=== PATIENT | female | born 1945 | race Caucasian/White ===

== ENCOUNTER 2017-07-27 05:22 | Inpatient (IN) | payer OTHER ==
[2017-07-12 08:42] LABS: HEMATOCRIT 40.7 % (37.0-47.0); HEMOGLOBIN 13.6 gm/dL (12.0-15.0); MCH 30.2 pg (26.0-34.0); MCHC 33.3 g/dL (28.0-37.0); MCV 90.5 fL (80.0-100.0); RBC 4.5 mil/uL (4.20-5.00); RDW 13.6 % (10.5-14.5); WBC 7.7 thou/uL (4.0-11.0)
[2017-07-12 08:51] LABS: URINE BILIRUBIN NEGATIVE (Negative); URINE BLOOD TRACE (Negative); URINE CLARITY CLEAR; URINE COLOR YELLOW; URINE GLUCOSE-RANDOM* NEGATIVE (Negative); URINE KETONES NEGATIVE (Negative); URINE LEUKOCYTES-REFLEX NEGATIVE (Negative); URINE NITRITE-REFLEX NEGATIVE (Negative); URINE PROTEIN (DIPSTICK) NEGATIVE (Negative); URINE UROBILINOGEN 0.2 E.U./dl (0.2-1.0)
[2017-07-12 08:53] LABS: ALBUMIN 4.4 g/dL (3.4-5.0); CALCIUM 9.5 mg/dL (8.5-10.1); CREATININE 0.8 mg/dL (0.6-1.0); POTASSIUM 3.8 mmol/L (3.5-5.1)
[2017-07-12 08:55] LABS: PROTIME 10.5 Seconds (9.3-11.4)
[2017-07-27] VITALS (7 sets, daily range): BP systolic 107–158; BP diastolic 59–80
[~2017-07-27] VITALS: Ht 167.6 cm; Wt 58.5 kg
--- NOTE | ~2017-07-27 | EKG ---
[place] [address] [facility] [place] [address] ELECTROCARDIOGRAM REPORT Name: CRISTAL MILLER Room #: PRE IN ..#: [id number] Admission: Attend Phys: Keshav Marrufo MD Discharge: Date of : 41 Report #: [id number] THIS REPORT FOR: //name// [facility] Test Date: 2017-07-12 Test Time: 08:47:57 Pat Name: CRISTAL MILLER Department: Room: Gender: F Industrial Staff Nurse: vianney perez : 1945 Requested By: Keshav Marrufo Order Number: [id number] MD: Jesús Roa Measurements Intervals [place] Rate: 78 P: 40 CT: 113 QRS: 52 QRSD: 86 T: -10 QT: 395 QTc: 450 Interpretive Statements Sinus rhythm Borderline short CT interval Abnormal R-wave progression, early transition Left ventricular hypertrophy No previous ECG available for comparison Electronically Signed On 07-12-2017 10:00:06 [employer] by Jesús Roa [email or web address] <ELECTRONICALLY SIGNED> By: Jesús Roa MD, [facility] 07/12/17 1000 [id number] Jesús Roa MD, FACC /EPI
--- NOTE | ~2017-07-27 | O ---
[facility] [place] [address] OPERATIVE REPORT Name: CRISTAL MILLER Room #: 403-P [facility] IN M.R.#: [id number] Admission: 07/27/17 Attend Phys: Keshav Marrufo MD Discharge: Date of : 41 Report #: [id number] THIS REPORT FOR: //name// CC: Esther Higgins Keshav Marrufo DATE OF SERVICE: 07/27/2017 PREOPERATIVE DIAGNOSIS: Left hip osteoarthritis. POSTOPERATIVE DIAGNOSIS: Left hip osteoarthritis. PROCEDURE: Left total hip arthroplasty. SURGEON: Keshav Marrufo MD. MANAGED CARE PROVIDER: Viridiana Vang PA-C. INDICATIONS FOR MANAGED CARE PROVIDER: Throughout the case, dislocation and reduction of the hip was required. This was afforded to me by my assistant auto center manager. ANESTHESIA: General endotracheal. IMPLANTS: [employer] size 14 high offset Synergy press fit stem, size 52 R3 acetabular cup with one acetabular screw and a size 36 +0 cobalt chrome head. ESTIMATED BLOOD LOSS: 100 mL. COMPLICATIONS: None. SPECIMENS: None. CONDITION UPON LEAVING THE OPERATING ROOM: Stable. INDICATION FOR PROCEDURE: The patient is a 72-year-old female with severe left hip osteoarthritis. She has failed conservative treatment for this and after discussion with her, she elected for left total hip arthroplasty. DESCRIPTION OF PROCEDURE: Risks, benefits, alternatives, complications were discussed in detail with the patient including but not limited to risk of anesthesia, risk of damage to nerves, arteries, blood vessels, risk for infection, bleeding, risk for leg length discrepancy, instability and need for reoperation. Informed consent was obtained from the patient and the left hip was appropriately marked in the preoperative holding area. IV Ancef was given for preoperative antibiotics. She was brought to the operating room and placed in supine position on operating room table. General endotracheal anesthesia was [facility] [address] [place] [address] OPERATIVE REPORT Name: CRISTAL MILLER Room #: 403-P ADM IN M.R.#: [id number] Admission: 07/27/17 Attend Phys: Keshav Marrufo MD Discharge: Date of : 41 Report #: [id number] induced without complication. She was then placed in the right lateral decubitus position with the left hip uppermost. Left hip and lower extremity were prepped and draped in normal sterile fashion. Timeout was performed properly identifying the patient, procedure as well as the instrumentation. All in the operating room were in agreement. Standard posterior approach to the hip was made with 10 blade through the skin. Dissection was taken down to the fascia with Bovie cautery and the fascia was cleaned off with Alfonso elevator. Fresh 10 blade was used to make a fascial incision. This was taken proximally and distally with curved Mcwilliams scissors. Charnley retractor was placed. Trochanteric bursa was taken down with Bovie. Piriformis tendon was identified, tagged and taken down with Bovie cautery. Capsulotomy was made and capsule ends were tagged for later repair. Hip was dislocated and there was extensive osteoarthritic change of the femoral head with flattening of the head. Femoral neck cut was then made 1 cm proximal to the lesser trochanter based on preoperative templating. Femoral head was removed. Deep acetabular retractors were placed and the labrum was removed sharply. Pulvinar was removed with Bovie cautery. The acetabulum was then sequentially reamed up to a size 54, which there was excellent bleeding cancellous bone. A size 53 trial cup was placed, found to have a good fit. A final size 54 R3 acetabular cup was placed and seated. One acetabular screw was placed for backup fixation with the polyethylene liner for 36 head was placed. Attention was then turned at the femur. This was reamed and broached up to a size 14 at which point, size 14 broach was stable. This was trialed with a high offset neck and a 36 +0 head. Hip was reduced, taken through range of motion, found to be stable, found to have equal leg lengths. Hip was dislocated and the broach was removed. The final size 14 high offset stem was then seated and trialed again with a 36 +0 head. Hip was reduced, taken through range of motion, found to be stable, found to have equal leg lengths. Hip was dislocated again and the trial head was removed. Final size 36 +0 cobalt chrome head was then placed. Hip was reduced, taken through range of motion, found to be stable, found to have equal leg length. The hip was thoroughly irrigated with normal saline. A periarticular injection consisting of morphine, ropivacaine, epinephrine and Toradol was placed around the hip joint. A gram of vancomycin was placed deep in the hip joint. The capsule and piriformis were repaired with 0 FiberWire. Fascia was closed with 0 Vicryl, skin was closed with 2-0 Vicryl, 3-0 Monocryl, Dermabond and a LESLIE dressing was applied. The patient tolerated this procedure well and went to the recovery room under the care of Anesthesia postoperatively. <ELECTRONICALLY SIGNED> By: Keshav Marrufo MD 07/28/17 1722 [id number] Keshav Marrufo MD /nt
[~2017-07-27 05:22] MED LIST: SERTRALINE HCL50 MG PO; TYLENOL325 MG PO
[2017-07-28] VITALS: BP 96/52
[2017-07-28 04:00] VITALS: BP 107/57
[2017-07-28 05:44] LABS: HEMATOCRIT 26.8 % (37.0-47.0); HEMOGLOBIN 9.2 gm/dL (12.0-15.0); MCH 31.1 pg (26.0-34.0); MCHC 34.4 g/dL (28.0-37.0); MCV 90.4 fL (80.0-100.0); RBC 2.96 mil/uL (4.20-5.00); RDW 13.4 % (10.5-14.5); WBC 7.4 thou/uL (4.0-11.0)
[2017-07-28 08:00] VITALS: BP 93/51
[2017-07-28 16:00] VITALS: BP 128/57
[2017-07-28] MEDS ORDERED: HYDROCODON-ACE1 EAC7 PO (17:23)
[2017-07-28] MEDS ORDERED: TRI-BUFFERED A325 M1 PO (17:23)
[2017-07-28] MEDS ORDERED: NEURONTIN 300300 M1 PO (17:23)
[2017-07-28 19:33] VITALS: BP 93/42
[2017-07-29 02:58] VITALS: BP 105/44
[2017-07-29 03:43] LABS: HEMOGLOBIN 8.6 gm/dL (12.0-15.0); MCH 31.3 pg (26.0-34.0); MCHC 34.6 g/dL (28.0-37.0); MCV 90.4 fL (80.0-100.0); RBC 2.76 mil/uL (4.20-5.00); RDW 13.5 % (10.5-14.5)
[2017-07-29 08:30] VITALS: BP 131/43
[2017-07-29 09:51] VITALS: BP 131/43
== END 2017-07-29 10:45 | disposition home or self-care (01) | DRG 470 ==
LOC: 4N 05:22 → TBA 05:22 → PRE 05:32 → 4N 10:33 → PRE 15:41 → 4N 07-29 10:45
PROVIDERS: Orthopaedic Surgery
PROC: 0SRB0JZ Replacement of Left Hip Joint with Synthetic Substitute, Open Approach (ICD-10-PCS; principal; 2017-07-27)
DX: M16.12 Unilateral primary osteoarthritis, left hip (principal); F32.9 Major depressive disorder, single episode, unspecified; M16.11 Unilateral primary osteoarthritis, right hip; M70.61 Trochanteric bursitis, right hip; F41.9 Anxiety disorder, unspecified; Z85.3 Personal history of malignant neoplasm of breast; Z98.42 Cataract extraction status, left eye; Z87.891 Personal history of nicotine dependence; Z98.41 Cataract extraction status, right eye; Z90.12 Acquired absence of left breast and nipple; Z82.61 Family history of arthritis; Z82.49 Family history of ischemic heart disease and other diseases of the circulatory system
CPT/HCPCS: 10790; 50010; 50101; 50382; 50414; 51771; 53000; 53078; 53367; 54118; 56524; 56527; 56528; 56529; 56530; 57095; 62110; 62900; 70005